=== PATIENT | female | born 1995 | race Caucasian/White ===

== ENCOUNTER 2016-10-05 16:57 | Emergency (ER) | payer OTHER ==
[~2016-10-05] VITALS: Ht 170.2 cm; Wt 107.7 kg
[2016-10-05 17:02] VITALS: BP 154/95; PULSE 100; RESP 16; O2SAT 99
--- NOTE | 2016-10-05 17:59 | ED.REPORT ---
HPI-General Illness Date of Service Oct 05, 2016 ED Provider: Freddy ChampagneO. A 21 year old female with a remote history of pulmonary hypertension presents to the ED from Urgent Care reporting almost daily episodes of palpitations onset seven months ago. Associated symptoms include chest pressure, SOB, and anxiety. The patient's symptoms are exacerbated by caffeine. She denies cough, fever, chills, nausea, vomiting, dysuria, or other symptoms. Nursing Notes Stated Complaint: IRREGULAR HEART BEAT/SENT FROM URGENT CARE Chief Complaint: Dysrhythmia/Cardiac Nursing Notes Reviewed: Yes Allergies: Coded Allergies: No Known Allergies (Unverified , 10/05/16) General Time Seen by MD: 17:58 Chief Complaint Other (Palpitations) Hx Obtained From: Patient Arrived By: Walk-in Sudden in Onset?: Yes Onset Occurred: More than a week ago... (Almost daily episodes for more than seven months) Symptom Duration: Intermittent Location: : Chest Quality: Painful, Pressure Severity: Current: Moderate Severity: Maximum: Moderate Associated with: Reports: Chest pain, Shortness of breath, Denies: Fever, Nausea, Vomiting Exacerbated by: Drinking (Caffeine) Pertinent Negative: Relieved by nothing Recent Healthcare: Recent doctor visit Similar Sx Previous: Yes Past Medical History Past Medical History Remote history of pulmonary hypertension as a child Past Surgical History None reported Smoking History Former Smoker (Quit 05/2016) Social History Alcohol Use: "Social" Drug Use: THC Other Social History: Lives with children Ambulatory Status Independent Review of Systems Full Review of Systems Constitutional: Denies: Chills, Fever Respiratory: Reports: Shortness of breath, Denies: Non-productive cough Cardiovascular: Reports: Chest pain, Palpitations GI: Denies: Nausea, Vomiting Female: Denies: Dysuria Psychiatric: Reports: Anxiety Complete sys rev & neg: except as marked. Physical Exam Vital Signs Vital Signs Date Time Temp Pulse Resp B/P Pulse Ox O2 Delivery O2 Flow Rate FiO2 10/05/16 22:40 76 16 98 10/05/16 20:29 84 16 98 Room Air 10/05/16 17:02 36.8 100 16 154/95 99 Room Air Initial VS: Reviewed Head / Eyes: Atraumatic, Normocephalic ENT: Conjunctiva normal, No scleral icterus Neck: Supple, Full range of motion Respiratory: Breath sounds normal, Clear to auscultation, No respiratory distress Skin: Warm, Dry, No cyanosis Neurologic: Alert, Oriented, Nonfocal Psychiatric: Mood/affect normal, Behavior normal, Normal thought content General/Constitutional: Awake, Alert Cardiovascular: Heart rate NL, Heart sounds NL Occasional ectopic beat present Interpretation & Diagnostics Lab Results Interpretation Result Diagram: 10/05/16189910/05/161899 Test 10/05/16 19:00 10/05/16 20:55 10/05/16 21:28 White Blood Count 12.6th/mm3 (3.8-10.1) Red Blood Count 4.79mil/mm3 (3.90-5.20) Hemoglobin 14.2g/dL (12.0-15.6) Hematocrit 41.2% (35.0-46.0) Mean Corpuscular Volume 86.0fL (81-100) Mean Corpuscular Hemoglobin 29.6pg (27.0-35.0) Mean Corpuscular Hemoglobin Concent 34.5% (32.0-37.0) Red Cell Distribution Width 11.8% (12.3-15.4) Platelet Count 282bil/L (150-400) Neutrophils (%) (Auto) 59.5% (40-74) Lymphocytes (%) (Auto) 31.7% (14-46) Monocytes (%) (Auto) 6.6% (4-12) Eosinophils (%) (Auto) 1.5% (0-5) Basophils (%) (Auto) 0.4% (0-3) D-Dimer < 0.50mg/L FEU (<0.50) Sodium Level 138mEq/L (134-144) Potassium Level 3.7mEq/L (3.5-5.2) Chloride Level 101mEq/L (97-108) Carbon Dioxide Level 20mmol/L (18-29) Blood Urea Nitrogen 16mg/dL (6-20) Creatinine 0.59mg/dL (0.57-1.00) Estimat Glomerular Filtration Rate 183mL/min (>59) Glucose Level 91mg/dL (60-99) Calcium Level 9.5mg/dL (8.5-10.1) Magnesium Level 1.9mg/dL (1.6-2.6) Total Bilirubin 0.3mg/dL (0.0-1.2) Aspartate Amino Transf (AST/SGOT) 15U/L (0-50) Alanine Aminotransferase (ALT/SGPT) 18U/L (0-32) Alkaline Phosphatase 52U/L (25-150) Pro-B-Type Natriuretic Peptide 30.36pg/mL (0-130) Total Protein 7.2g/dL (6.4-8.4) Albumin 4.6g/dL (3.4-5.0) Thyroid Stimulating Hormone (TSH) 1.550uIU/mL (0.450-4.500) Troponin T 0.010ug/L (0.0-0.011) Hold [place] Top Tube Received (Received) ECG Interpretation Time: 18:26 Interpreted by: ED physician Normal ECG Interpretation: Normal ECG w/ rate of... (69), Normal sinus rhythm X-Ray Chest Interpretation Chest Xray Interpretation: IMPRESSION: No acute cardiopulmonary disease. Dictated by: Dayton Aparicio M.D. on 10/05/2016 at 21:15 View: AP & lat Interpretation / Wet Read by: Interpret - Radiologist Re-Eval/Medical Decision Med Decision/Clinical Course In summary this is a 21-year-old highly anxious female whose been suffering with atypical chest pain and palpitations for some time. She has no coronary disease risk factors. Wells criteria is low risk. Clinical gestalt for PE is low risk. D-dimer was negative. PE felt to be very unlikely with the negative d-dimer and low risk. CT not indicated. Jordan dissection highly unlikely. HI ruled out with EKG and troponins. She looked great. Her EKG was normal. With normal conduction. I will treat her underlying anxiety and refer her for outpatient follow-up regarding the palpitations. Time of Eval: 20:41 Patient Status: Condition improved Re-Evaluation/Progress Note: Discussed with patient EKG and lab results with plan for repeat labs. Time of Eval: 22:06 Patient Status: Condition improved Re-Evaluation/Progress Note: Discussed with patient repeat lab results, diagnosis, and plan for discharge. Follow-up and return to the ER instructions given. Patient agrees with plan for care and all questions were addressed. Counseled Regarding: Diagnosis, Lab results, Need for follow-up, When/why to return to ED Discharge & Departure Primary Impression: Heart palpitations Additional Impression: Anxiety Disposition: Home Discharge Condition All VS Reviewed: Yes Condition: Improved Patient Instructions: Chest Pain (ED), Generalized Anxiety Disorder (ED), Palpitations (ED) Additional Instructions: Thank you for entrusting us with your care. Your exam today was reassuring for any serious illness at this time. Your EKG was normal. Stop using marijuana. Call your primary care provider tomorrow for a follow-up appointment. Take Xanax one every 8 hours as needed for anxiety. Do not drink alcohol or consume any sedatives or operate motor vehicles or machinery while under the influence of Xanax. I recommend that your primary care or the accounts payable manager will put you on a heart monitor. Discuss this at your follow-up. Return if any problems or any worsening symptoms. Referrals: Alisha Floyd MD [facility] Scribe Attestation Portions of this note were transcribed by Aye Ford. I, Dr. Rodríguez, personally performed the history, physical exam, and medical decision-making; I reviewed and confirmed the accuracy of the information in the transcribed note. Signed by: Janel Bocanegra, 10/05/2016, 22:50 copies to: Alisha Floyd MD; [facility] Timothy Rodríguez DO Oct 05, 2016 17:59 AYE FORD Oct 05, 2016 18:07
[2016-10-05 19:09] LABS: BASOPHILS % (AUTO) 0.4 % (0-3); EOSINOPHILS % (AUTO) 1.5 % (0-5); MONOCYTES % (AUTO) 6.6 % (4-12); Mean Corpuscular Hemoglobin 29.6 pg (27.0-35.0); NEUTROPHILS % (AUTO) 59.5 % (40-74); Platelet Count 282 bil/L (150-400)
[2016-10-05 19:54] LABS: TROPONIN T < 0.010 ug/L (0.0-0.011)
[2016-10-05 19:57] LABS: Magnesium 1.9 mg/dL (1.6-2.6)
[2016-10-05 20:29] VITALS: PULSE 84; RESP 16; O2SAT 98
--- NOTE | 2016-10-05 21:22 | DRSVH ---
PROCEDURE: X-RAY CHEST, TWO VIEWS ([id number]) INDICATIONS: 21 year-old female with chest pain. TECHNIQUE: 2 views of the chest were acquired. COMPARISON: None. FINDINGS: Surgical changes and devices: None. Lungs and pleura: No pleural effusions or pneumothorax. Lungs are clear. Mediastinum: Mediastinal contours are normal. Heart size is normal. Bones and chest wall: No suspicious bony abnormalities. Soft tissues appear unremarkable. IMPRESSION: No acute cardiopulmonary disease. Dictated by: Dayton Aparicio M.D. on 10/05/2016 at 21:15 Approved by: Dayton Aparicio M.D. on 10/05/2016 at 21:15
[2016-10-05 22:40] VITALS: PULSE 76; RESP 16; O2SAT 98
== END 2016-10-05 22:41 | disposition home or self-care (01) ==
LOC: SED 16:57
DX: R00.2 Palpitations (principal); F41.9 Anxiety disorder, unspecified; Z86.79 Personal history of other diseases of the circulatory system; Z87.891 Personal history of nicotine dependence

== ENCOUNTER 2016-11-28 23:47 | Emergency (ER) | payer OTHER ==
[~2016-11-28] VITALS: Ht 170.2 cm; Wt 108.6 kg
[2016-11-28 23:52] VITALS: BP 126/85; PULSE 68; RESP 16; O2SAT 99
--- NOTE | 2016-11-29 01:43 | ED.REPORT ---
HPI-Hand Prob/Inj Date of Service Nov 29, 2016 ED Provider: Davon Jaeger MD The patient is a healthy 21 year old female who presents to the ED with a right fifth finger laceration onset just prior to arrival. The patient was holding a glass bong that broke in her hand. She denies additional injury/trauma or other symptoms. Nursing Notes Stated Complaint: LAC TO RIGHT PINKY FINGER Chief Complaint: Laceration Nursing Notes Reviewed: Yes Allergies: Coded Allergies: No Known Allergies (Unverified , 11/28/16) General Time Seen by Provider: 01:41 Chief Complaint Other (Right Fifth Finger Laceration) Hx Obtained From: Patient Arrived By: Walk-in Onset Occurred: Just prior to arrival Symptom Duration: Since onset Location: Right Hand: : Finger... (Little) Quality: Painful Severity: Current: Moderate Severity: Maximum: Moderate Pertinent Negative: Relieved by nothing Immunizations: Unknown Recent Healthcare: No recent doctor visit Past Medical History Past Medical History Remote history of pulmonary hypertension as a child Past Surgical History None reported Smoking History Former Smoker Social History Alcohol Use: "Social" Drug Use: THC Other Social History: Lives with children Ambulatory Status Independent Review of Systems Review of Systems Note: + Right fifth finger laceration Constitutional: Denies: Fever Complete sys rev & neg: except as marked. Respiratory: Denies: Non-productive cough, Shortness of breath GI: Denies: Diarrhea, Vomiting Physical Exam Initial Vital Signs Vital Signs (First) Date Time Temp Pulse Resp B/P Pulse Ox O2 Delivery O2 Flow Rate FiO2 11/28/16 23:52 36.6 68 16 126/85 99 Room Air Initial VS: Reviewed, Vital signs normal Head / Eyes: Atraumatic, Normocephalic ENT: Conjunctiva normal, No scleral icterus Neck: Supple, Full range of motion Respiratory: No respiratory distress Skin: Warm, Dry, No cyanosis Neurologic: Alert, Oriented, Nonfocal Psychiatric: Mood/affect normal, Behavior normal, Normal thought content Wrist / Hand: Neurologic intact, Vascular intact Trauma / Burn / Environmental: Positive: Laceration (1cm laceration to right fifth finger with a superficial 0.5cm laceration distal to that) General/Constitutional: Awake, Alert Appearance / Presentation: Positive: Obese Procedures Laceration Management Laceration Management: Steri-strips used to close laceration Time: 01:49 Procedure Performed by: ED physician Consent / Setup / Site Prep: Consent from patient, Time-out performed, Hand hygiene observed, Stand sterile technique Location of Wound: Right fifth finger Wound Length: 1 cm Wound Preparation: Other (Benzoin) Closure Layers: 1 Post-Procedure / Complications: Dressing applied, No complications, Condition improved, Tolerated procedure well, Patient stable Re-Eval/Medical Decision Med Decision/Clinical Course Superficial finger laceration without evidence of nerve or tendon damage. This was cleansed with saline and closed with a circumferential Steri-Strip and benzoin. Patient was given verbal instructions but walked out prior to her written instructions. Source of Hx: Old records Re-Evaluation/Progress : Time of Eval: 01:49 Patient Status: Condition improved Re-Evaluation/Progress Note: Laceration management performed. Discussed with patient physical exam findings, diagnosis, and plan for discharge. Follow-up and return to the ER instructions given. Patient agrees with plan for care and all questions were addressed. Counseled Regarding: Diagnosis, Need for follow-up, When/why to return to ED Discharge & Departure Primary Impression: Finger laceration Encounter type: initial encounter Qualified Code: S61.219A - Laceration without foreign body of unspecified finger without damage to nail, initial encounter Disposition: Home Discharge Condition All VS Reviewed: Yes Condition: Improved Patient Instructions: Finger Laceration (ED) Additional Instructions: Thank you for entrusting us with your care. Leave the Steri-Strips in place for 3-5 days. You may get the area wet but do not soak it. Call your primary care provider tomorrow for a follow-up appointment. Return to the ER with any signs of infection. Referrals: NOPCP (PCP) Scribe Attestation Portions of this note were transcribed by Aye Ford. I, Dr. Jaeger, personally performed the history, physical exam, and medical decision-making; I reviewed and confirmed the accuracy of the information in the transcribed note. Signed by: Janel Bocanegra, 11/29/2016, 04:05 Davon Jaeger MD Nov 29, 2016 01:43 AYE FORD Nov 29, 2016 01:51
== END 2016-11-29 01:57 | disposition home or self-care (01) ==
LOC: SED 23:47
DX: S61.216A Laceration without foreign body of right little finger without damage to nail, initial encounter (principal); W25.XXXA Contact with sharp glass, initial encounter; Y93.89 Activity, other specified; Y92.9 Unspecified place or not applicable; Y99.8 Other external cause status